=== PATIENT | male | born 1945 | race Caucasian/White ===

== ENCOUNTER → 2016-12-29 | Outpatient (CLI) | payer MEDICARE, OTHER ==
[~2016-12-29] MED LIST: 00186-0370-20 IH; CLOBETASOL PROP0.055 TP; COMBIRESP IH; DECADRON 4MG TAB4 MG PO; DITROPAN XL10 MG PO; DOXYCYCLINE 10100 MG PO; FLEXERIL 1010 MG/TAB PO; HYTRIN 5MG C5 MG/CAP PO; IPRATROPIUM BROM3 M1 IH; LIPITOR20 MG PO; PERCOCET 325 MG1 TA2 PO; PHENERGAN W/CO120 M1 PO; PREDNISONE20 MG PO; PRILOTC PO; PROVENTIL0.09 MG/A1 IH; PULMICORT90 MCG/Act IH; TAMIFLU 75MG75 MG PO; TEMOVATE0.052 TOP; VIAGRA100 MG PO; ZITHROMAX TRI-500 MG PO; [UNRECOGNIZED DRUG - OTHER] PO
== END ==
LOC: COL.RAD 07:12
DX: Z13.6 Encounter for screening for cardiovascular disorders (principal); I70.0 Atherosclerosis of aorta; F17.200 Nicotine dependence, unspecified, uncomplicated

== ENCOUNTER 2020-05-25 10:06 | Emergency (ER) | payer MEDICARE, OTHER ==
[~2020-05-25] VITALS: Ht 175.3 cm; Wt 75.0 kg
[2020-05-25 10:42] LABS: BASO # 0.1 (0.0-0.2); EOS # 0.2 (0.0-0.7); EOS % 2.5 % (0-4.0); GRAN # 4.6 (1.4-6.5); GRAN % 67.2 % (42.2-75.2); HEMATOCRIT 43.2 % (42.0-52.0); HEMOGLOBIN 14.3 g/dl (13.5-18.0); LYMPH # 1.5 (1.2-3.4); LYMPH % 21.6 % (20.0-51.0); MEAN CELL VOLUME 93 fl (80.0-100.0); MEAN CORPUSCULAR HEMOGLOBIN 31 pg (27.0-31.0); MEAN CORPUSCULAR HGB CONC 33 g/dl (33.0-37.0); MEAN PLATELET VOLUME 9.9 fl (7.4-10.4); MONO # 0.5 (0.1-0.6); MONO % 7.4 % (1.7-9.3); PLATELET COUNT 236 K/mm3 (130-400); RED BLOOD COUNT 4.63 M/mm3 (4.20-5.60); REDCELL DISTRIBUTION WIDTH-CV 13.2 % (11.5-14.5)
[2020-05-25 10:53] LABS: ALANINE AMINOTRANSFERASE 13 U/L (4-49); ALBUMIN 3.7 gm/dL (3.5-5.0); ALKALINE PHOSPHATASE 69 U/L (50-136); ANION GAP 5 mmol/L (7-16); AST,SGOT 17 U/L (15-37); BILIRUBIN,TOTAL 0.6 mg/dL (0.0-1.0); BLOOD UREA NITROGEN 15 mg/dL (9-20); CALCIUM 8.9 mg/dL (8.4-10.2); CARBON DIOXIDE 28 mmol/L (22-30); CHLORIDE 101 mmol/L (98-107); CREATININE, serum 0.88 (0.66-1.25); GLUCOSE 122 mg/dL (74-106); PARTIAL THROMBOPLASTIN TIME 30.4 SECONDS (26.0-37.0); SODIUM 135 mmol/L (137-145); TOTAL PROTEIN 6.5 gm/dL (6.4-8.2)
[2020-05-25 11:12] LABS: TROPONIN-I < 0.012 ng/mL (0.000-0.035)
[2020-05-25] MEDS ORDERED: TOPROL XL 50MG50 MG PO (13:59)
[2020-05-25 14:13] VITALS: BP 169/87; PULSE 78; TEMP 98.2
== END 2020-05-25 14:13 | disposition home or self-care (01) ==
LOC: COL.ER 10:06
PROVIDERS: Family Medicine
DX: J44.9 Chronic obstructive pulmonary disease, unspecified (principal); K44.9 Diaphragmatic hernia without obstruction or gangrene; I10 Essential (primary) hypertension; Z87.891 Personal history of nicotine dependence; Z79.51 Long term (current) use of inhaled steroids

== ENCOUNTER → 2021-01-26 | Outpatient (CLI) | payer MEDICARE, OTHER ==
[~2021-01-26] MED LIST changes: +TOPROL XL 50MG50 MG PO
== END ==
LOC: COL.RAD 09:26
DX: Z12.2 Encounter for screening for malignant neoplasm of respiratory organs (principal); F17.210 Nicotine dependence, cigarettes, uncomplicated; R91.8 Other nonspecific abnormal finding of lung field; I25.10 Atherosclerotic heart disease of native coronary artery without angina pectoris

== ENCOUNTER 2022-01-08 06:55 | Day surgery (SDC) | payer OTHER, MEDICARE ==
[~2022-01-08] VITALS: Ht 175.3 cm; Wt 73.5 kg
[2022-01-08] MEDS ORDERED: COZAAR100 MG PO (07:15)
[2022-01-08] MEDS ORDERED: DALIRESP500 MCG PO (07:15)
[2022-01-08 07:16] VITALS: BP 164/79; PULSE 88; TEMP 98.2
[2022-01-08 09:00] VITALS: BP 158/74; PULSE 106; TEMP 97.5
--- NOTE | 2022-01-08 09:00 | NUR ---
Patient arrives to [facility] [place] [address] via cart, accompanied by Endo RN Hannah. He is alert and oriented. He is coughing. RT has been contacted to administer a breathing treatment. PIV to TKO. His family is at the bedside. Monitoring is applied -VSS on room air. Will return following his breathing treatment.
[2022-01-08 09:15] VITALS: BP 137/57; PULSE 100
--- NOTE | 2022-01-08 09:15 | NUR ---
Patient is resting more comfortably. He is still coughing, but it is subsiding. He is offered water, he sips this without issue. He requests and receives coffee, pudding, and a muffin.
[2022-01-08 09:30] VITALS: BP 119/69; PULSE 94
[2022-01-08 09:45] VITALS: BP 115/92; PULSE 102
[2022-01-08 10:00] VITALS: BP 140/69; PULSE 91
--- NOTE | 2022-01-08 10:39 | NUR ---
Patient has met discharge criteria. He is no longer coughing. VSS. Discharge instructions are discussed. He denies any questions and verbalizes understanding. PIV is removed with catheter intact and hemostasis achieved. He changes to his clothing independently. He is escorted to the exit via wheelchair by staff. He is discharged to home with ride in private vehicle at 1039.
== END 2022-01-08 10:39 | disposition home or self-care (01) ==
LOC: SDCO 06:55
DX: R91.8 Other nonspecific abnormal finding of lung field (principal); F17.200 Nicotine dependence, unspecified, uncomplicated; K21.9 Gastro-esophageal reflux disease without esophagitis
CPT/HCPCS: J2704; J7120

== ENCOUNTER → 2022-02-18 | Outpatient (CLI) | payer OTHER ==
[~2022-02-18] MED LIST changes: +COZAAR100 MG PO; +DALIRESP500 MCG PO
== END ==
LOC: COL.VAS 02-16 14:45
DX: I51.7 Cardiomegaly (principal); I36.1 Nonrheumatic tricuspid (valve) insufficiency

== ENCOUNTER 2022-05-21 19:14 | Inpatient (IN) | payer MEDICARE, OTHER ==
[~2022-05-21] VITALS: Ht 175.3 cm; Wt 72.7 kg
[2022-05-21 21:26] LABS: BASO # 0.1 K/mm3 (0.0-0.2); BASO % 0.5 % (0.0-2.0); EOS # 0.1 K/mm3 (0.0-0.7); EOS % 1.2 % (0.0-4.0); GRAN # 7.8 K/mm3 (1.4-6.5); HEMATOCRIT 38.6 % (42.0-52.0); HEMOGLOBIN 13.5 g/dl (13.5-18.0); LYMPH # 0.8 K/mm3 (1.2-3.4); LYMPH % 8.3 % (20.0-51.0); MEAN CELL VOLUME 92 fl (80.0-100.0); MEAN CORPUSCULAR HEMOGLOBIN 32 pg (27-31); MEAN CORPUSCULAR HGB CONC 35 g/dl (33.0-37.0); MEAN PLATELET VOLUME 10.2 fl (7.4-10.4); MONO # 0.6 K/mm3 (0.1-0.6); MONO % 6.5 % (1.7-9.3); PLATELET COUNT 234 K/mm3 (130-400); RED BLOOD COUNT 4.18 M/mm3 (4.20-5.60)
[2022-05-21 21:46] LABS: ALBUMIN 3.2 gm/dL (3.4-4.8); BILIRUBIN,TOTAL 0.8 mg/dL (0.2-1.2); CREATININE, serum 0.67 mg/dL (0.72-1.25); POTASSIUM 3.4 mmol/L (3.5-4.5); TOTAL PROTEIN 6.3 gm/dL (6.2-8.1)
[2022-05-21] MEDS ORDERED: DALIRESP500 MCG PO (22:23)
[2022-05-21] MEDS ORDERED: COZAAR100 MG PO (22:23)
[2022-05-21] MEDS ORDERED: VIAGRA100 M1 PO (22:25)
[2022-05-21 23:47] LABS: INR 1.1 (0.8-3.0); PROTHROMBIN TIME 12.2 SECONDS (9.7-12.8)
[2022-05-22 01:47] LABS: COLLECTION METHOD IN
[2022-05-22 02:03] LABS: PH 5.5 (5.0-8.5); URINE APPEARANCE Clear (CLEAR/HAZY); URINE COLOR Yellow (YELLOW); URINE GLUCOSE Negative (NEGATIVE); URINE PROTEIN(semi-quant) Negative (NEGATIVE)
[2022-05-22 02:04] LABS: URINE BLOOD Negative (NEGATIVE); URINE KETONE 1+ (NEGATIVE); URINE NITRATE Negative (NEGATIVE); URINE UROBILINOGEN 0.2 E.U/dL (0.2-1.0)
[2022-05-22 02:08] LABS: MUCOUS Present (NOT PRESENT); SQUAMOUS EPITHELIAL None Seen /hpf (0-10); URINE BACTERIA None Seen /hpf (NONE SEEN); URINE RBC 0-2 /hpf (0-2)
--- NOTE | 2022-05-22 02:10 | NUR ---
Pt transferred to Surgical unit around 0130. Report received from EVENT MANAGER Nurse. Pt is A&O x4. Complaining of pain on Left Hip at the time of admission. PO Oxycodone, and last dose of PO K+ given per emar. pattern chain maker supervisor Apple performing Physical assessment. Pt has no other needs or concerns besides pain. RFA peripheral line. Fluids running at this time. Folley catheter in place with yellow and clear urine in bag. Pt is NPO per orders. On room air. Covid tested per orders. SCD on RLE. Iced pack applied to L Hip. Call light within reach.
[2022-05-22 04:50] VITALS: BP 150/71; PULSE 107; TEMP 97.7
[2022-05-22 06:38] LABS: BASO % 0.3 % (0.0-2.0); EOS # 0.1 K/mm3 (0.0-0.7); GRAN # 7.8 K/mm3 (1.4-6.5); GRAN % 84.8 % (42.2-75.2); HEMATOCRIT 40.3 % (42.0-52.0); HEMOGLOBIN 13.8 g/dl (13.5-18.0); LYMPH # 0.7 K/mm3 (1.2-3.4); LYMPH % 7.3 % (20.0-51.0); MEAN CELL VOLUME 92 fl (80.0-100.0); MEAN CORPUSCULAR HEMOGLOBIN 31 pg (27-31); MEAN CORPUSCULAR HGB CONC 34 g/dl (33.0-37.0); MEAN PLATELET VOLUME 9.8 fl (7.4-10.4); MONO # 0.6 K/mm3 (0.1-0.6); MONO % 6.3 % (1.7-9.3); PLATELET COUNT 241 K/mm3 (130-400); RED BLOOD COUNT 4.39 M/mm3 (4.20-5.60); REDCELL DISTRIBUTION WIDTH-CV 12.9 % (11.5-14.5)
[2022-05-22 06:53] LABS: CALCIUM 8.8 mg/dL (8.4-10.2); CREATININE, serum 0.73 mg/dL (0.72-1.25); POTASSIUM 3.9 mmol/L (3.5-4.5)
[2022-05-22 08:00] VITALS: BP 146/62; PULSE 101; TEMP 97.8
--- NOTE | 2022-05-22 09:45 | NUR ---
PT RESTING IN BED WITH FAMILY AT BEDSIDE. CONSENT SIGNED ON CHART. DR EARL CONSULTED PER ORDERS THIS AM. ORTHO IN TO SEE PT THIS AM. WAITING CLEARANCE FOR SURGERY LATER TODAY.
[2022-05-22 11:28] LABS: ARTERIAL BLD GAS O2 SATURATION 91.5 % (92-100); ARTERIAL BLOOD GAS BASE EXCESS -2.6 (-2-2); ARTERIAL BLOOD GAS PCO2 33.1 mmHg (35-45); ARTERIAL BLOOD GAS PO2 58.7 mmHg (80-100); ARTERIAL BLOOD GAS pH 7.42 (7.35-7.45)
[2022-05-22 12:00] VITALS: BP 126/55; PULSE 87; TEMP 97.6
[2022-05-22 15:50] VITALS: BP 121/59; PULSE 95; TEMP 99.2
[2022-05-22 19:21] VITALS: BP 176/76; PULSE 101; TEMP 98.1
--- NOTE | 2022-05-22 23:27 | NUR ---
SHIFT REPORT FROM JUDY COUCH. PATIENT IN BED ON ROOM ENTRY. ALERT AND ORIENTED BUT SLOW TO RESPOND. FAMILY AT BEDSIDE. PATIENT BECAME NAUSEATED SHORTLY AFTER SHIFT CHANGE AND HAD 1 EPISODE OF EMESIS. CALL PLACED TO MICHAEL COBB AND PRN ZOFRAN ORDERED AND GIVEN. PRN MORPHINE FOR PAIN. REFUSED TO WEAR BIPAP PER RT. DENIES ADDITIONAL NEEDS.
[2022-05-22 23:40] VITALS: BP 144/76; PULSE 93; TEMP 98.2
[2022-05-23] VITALS (14 sets, daily range): BP systolic 110–197; BP diastolic 60–87; PULSE 62–113; TEMP 97.5–98.7
--- NOTE | 2022-05-23 00:45 | NUR ---
IV TO R FA INFILTRATED WITH IVF INFUSING. RESTARTED ON FIRST ATTEMPT TO R FA, 20 G IV. TOLERATED WELL. OLD IV SITE DC'D AND GAUZE AND TAPE APPLIED.
[2022-05-23 06:25] LABS: BASO % 0.5 % (0.0-2.0); EOS # 0.2 K/mm3 (0.0-0.7); EOS % 2.8 % (0.0-4.0); GRAN # 6.9 K/mm3 (1.4-6.5); HEMATOCRIT 37.2 % (42.0-52.0); HEMOGLOBIN 12.3 g/dl (13.5-18.0); LYMPH # 0.5 K/mm3 (1.2-3.4); LYMPH % 6.3 % (20.0-51.0); MEAN CELL VOLUME 96 fl (80.0-100.0); MEAN CORPUSCULAR HEMOGLOBIN 32 pg (27-31); MEAN CORPUSCULAR HGB CONC 33 g/dl (33.0-37.0); MEAN PLATELET VOLUME 10.3 fl (7.4-10.4); MONO # 0.8 K/mm3 (0.1-0.6); MONO % 9.2 % (1.7-9.3); PLATELET COUNT 211 K/mm3 (130-400); RED BLOOD COUNT 3.89 M/mm3 (4.20-5.60); REDCELL DISTRIBUTION WIDTH-CV 12.9 % (11.5-14.5)
[2022-05-23 06:38] LABS: CALCIUM 8.6 mg/dL (8.4-10.2); CREATININE, serum 0.71 mg/dL (0.72-1.25); POTASSIUM 3.6 mmol/L (3.5-4.5)
--- NOTE | 2022-05-23 09:58 | NUR ---
PT RESTING IN BED. PAIN CONTROLLED WITH PO MEDS, POTASSIUM PROTOCOLS INPLACE. REPLACING PER PROTOCOL. PLAN ON SURGERY LATER TODAY. CONSENT SIGNED ON CHART.
--- NOTE | 2022-05-23 11:12 | NUR ---
SW met with pt to complete intake. Pt life partner, Veronica present in the room. [phone]. Pt reports independent on all ADLS and does have CPAP & Nebulizer, but does not use them. PCP is MA and gets medications from [facility]. Pt reports he has a DPAO-HC and it's his son, Musa. Pt would like referrals to [facility](1st choice) & [facility]. SW to fax referrals 05/23/21.
--- NOTE | 2022-05-23 13:04 | NUR ---
PT TO SURGERY PER BED WITH AUGUSTO RN AT 1245.
--- NOTE | 2022-05-23 15:04 | NUR ---
PT TO ROOM 326 PER BED WITH REPORT FROM AUGUSTO COUCH PACU @1130. PT IS DROWSEY BUT AROUSES TO VERBAL. VSS, DRESSING TO LEFT HIP CDI WITH GAUZE AND TEGADERM OVER INCISION. IV TO PUMP AND RESUME POTASSIUM PROTOCOLS. FAMILY AT BEDSIDE.
--- NOTE | 2022-05-23 16:31 | NUR ---
PT BP TRENDING UP LAST READING 190/91. GAVE PO PAPIN MEDS AND UPDATED DR. MORRELL, CONTINUE TO MONITOR. NO NEW ORDERS.
--- NOTE | 2022-05-23 20:56 | NUR ---
Patient A/O, head to toe assessment done, see shift assessment, reports pain PS of 8/10, oxycodone given as ordered PRN, with IV infusing well on right forearm, with murphy catheter draining well, denies further needs, call light and personal items within reach, will continue to monitor.
--- NOTE | 2022-05-23 21:20 | NUR ---
SPOKE WITH PT ABOUT WEARING BIPAP WHILE SLEEPING TONIGHT PER DR. EARL'S ORDER; PT REFUSES, STATES HE WILL ONLY ACCEPT WEARING THE NASAL CANNULA. PT IS SLEEPING, AWAKES TO INTRODUCITON AND HOLD CONVERSATION; SPO2 97% ON 3LPM NC AT THIS TIME. TITRATED TO 2LPM.
[2022-05-24] VITALS (7 sets, daily range): BP systolic 120–189; BP diastolic 70–83; PULSE 60–107; TEMP 97.4–99.2
--- NOTE | 2022-05-24 03:41 | NUR ---
Pt refusing to wear our V-60 BIPAP at Night. Is on 2L/NC 96%.
[2022-05-24 07:03] LABS: BASO % 0.4 % (0.0-2.0); EOS # 0.2 K/mm3 (0.0-0.7); EOS % 1.8 % (0.0-4.0); GRAN # 7.5 K/mm3 (1.4-6.5); GRAN % 80.2 % (42.2-75.2); HEMOGLOBIN 12.4 g/dl (13.5-18.0); LYMPH # 0.7 K/mm3 (1.2-3.4); LYMPH % 7.4 % (20.0-51.0); MEAN CELL VOLUME 93 fl (80.0-100.0); MEAN CORPUSCULAR HEMOGLOBIN 32 pg (27-31); MEAN CORPUSCULAR HGB CONC 34 g/dl (33.0-37.0); MEAN PLATELET VOLUME 10.4 fl (7.4-10.4); MONO # 0.9 K/mm3 (0.1-0.6); MONO % 9.8 % (1.7-9.3); PLATELET COUNT 207 K/mm3 (130-400); RED BLOOD COUNT 3.89 M/mm3 (4.20-5.60); REDCELL DISTRIBUTION WIDTH-CV 12.8 % (11.5-14.5)
[2022-05-24 07:26] LABS: CALCIUM 8.9 mg/dL (8.4-10.2); CREATININE, serum 0.68 mg/dL (0.72-1.25); POTASSIUM 3.7 mmol/L (3.5-4.5)
--- NOTE | 2022-05-24 07:59 | NUR ---
Pt doing okay. Stated he could not get up because he was hurting too bad. Offered pain medication which pt stated that he wasn't quite ready for. Informed him that he would be getting up to the chair today and pt did not think that he could. Pt required some assistance to sitting position, but then pt was able to stand with no help and did transfer to the chair slowly, but did well. Breakfast ordered
--- NOTE | 2022-05-24 09:26 | NUR ---
Initial visit; Patient thanked Circulation Crew Leader for looking in on him and offering prayer and God's blessings. Patient appears to have some anxiety about being in the hospital. Circulation Crew Leader mentioned what a good view of [facility] he has to which he had no comment. Patient mannerly and was glad for the prayer. Circulation Crew Leader wished him well.
--- NOTE | 2022-05-24 16:16 | NUR ---
Clinical updates sent to Max at [facility].
--- NOTE | 2022-05-24 21:00 | NUR ---
Patient doing better, head to toe assessment done, see shift assessment, rated his pain at 7/10, dayshift nurse gave him oxycodone, ice pack on, denies further needs, call light and personal items within reach, will continue to monitor.
[2022-05-25 04:24] VITALS: BP 187/90; PULSE 96; TEMP 98.8
[2022-05-25 06:06] LABS: BASO % 0.6 % (0.0-2.0); EOS # 0.2 K/mm3 (0.0-0.7); EOS % 3.4 % (0.0-4.0); GRAN # 5.2 K/mm3 (1.4-6.5); GRAN % 72.8 % (42.2-75.2); LYMPH # 0.7 K/mm3 (1.2-3.4); LYMPH % 10.2 % (20.0-51.0); MEAN CELL VOLUME 91 fl (80.0-100.0); MEAN CORPUSCULAR HEMOGLOBIN 32 pg (27-31); MEAN CORPUSCULAR HGB CONC 35 g/dl (33.0-37.0); MEAN PLATELET VOLUME 10.1 fl (7.4-10.4); MONO # 0.9 K/mm3 (0.1-0.6); MONO % 12.4 % (1.7-9.3); PLATELET COUNT 196 K/mm3 (130-400); RED BLOOD COUNT 3.77 M/mm3 (4.20-5.60); REDCELL DISTRIBUTION WIDTH-CV 12.8 % (11.5-14.5)
[2022-05-25 06:07] LABS: HEMATOCRIT 34.3 % (42.0-52.0)
[2022-05-25 06:18] LABS: CALCIUM 9.2 mg/dL (8.4-10.2); CREATININE, serum 0.66 mg/dL (0.72-1.25); POTASSIUM 3.5 mmol/L (3.5-4.5)
[2022-05-25 06:38] VITALS: BP 180/77
[2022-05-25 07:19] VITALS: BP 183/89; PULSE 101; TEMP 98
--- NOTE | 2022-05-25 07:35 | NUR ---
Bedside report received from the night nurse, IZA Mao.
--- NOTE | 2022-05-25 08:46 | NUR ---
Patient sitting up in a recliner next to bed. Patient alert and oriented. Gauze dressing to left hip , dry and intact. Patient reports of intermittent pain. Pulses presents. Dr. Kan at the bedside and order to wean patient off 02. O2 off at this time and will continue to monitor 02 sat level. Patient denies needs at this time. Safety measures activated by having fall alarm system on. Call hood within reach.
--- NOTE | 2022-05-25 10:33 | NUR ---
Patient c/o pain at left hip , pain medication administered.
[2022-05-25 11:31] VITALS: BP 117/63; PULSE 98; TEMP 97.6
[2022-05-25] MEDS ORDERED: ASPI325T6 PO (11:42)
[2022-05-25] MEDS ORDERED: SENEXON-S 50-81 EACH PO (11:42)
[2022-05-25] MEDS ORDERED: ROXICODONE 55 MG/TAB PO (11:48)
[2022-05-25] MEDS ORDERED: TYLENOL 500MG500 MG PO (11:48)
--- NOTE | 2022-05-25 11:56 | NUR ---
The clinical team is ready to discharge the patient today. JESSICA notified Max at [facility]. Max reports that they are able to accept the patient today. JESSICA met with the patient to update. The patient is agreeable to going to [facility] today. JESSICA presented and read the IM form outloud to him. The patient verbalized understanding and signed the form. JESSICA provided him with a copy. JESSICA contacted and updated the patient's life partner, Veronica. She is also supportive of the plan. The patient is to discharge today, 05/25, to [facility] for a skilled stay. Transportation was scheduled at 1400, via [facility]. JESSICA informed the patient, his life partner, and RN of the time. No additional needs at this time.
--- NOTE | 2022-05-25 14:34 | NUR ---
Transportation service up on the unit to transport patient to [facility]. Patient requested for pain medication before leaving the unit. Pain medication administered. All belongings givent to patient. INT discontinued.
--- NOTE | 2022-05-25 15:06 | NUR ---
Report given to receiving nurse Ashanti at [facility].
== END 2022-05-25 14:35 | DRG 481 ==
LOC: COL.ER 19:14 → SURG 21:46
PROVIDERS: Emergency Medicine; Internal Medicine; Nurse Practitioner Family; Orthopaedic Surgery; Student in an Organized Health Care Education/Training Program; ADMIT Internal Medicine
PROC: 0QS704Z Reposition Left Upper Femur with Internal Fixation Device, Open Approach (ICD-10-PCS; principal; 2022-05-23 13:00)
DX: S72.142A Displaced intertrochanteric fracture of left femur, initial encounter for closed fracture (principal); E87.1 Hypo-osmolality and hyponatremia; E87.3 Alkalosis; M87.851 Other osteonecrosis, right femur; W18.39XA Other fall on same level, initial encounter; Z66 Do not resuscitate; J44.9 Chronic obstructive pulmonary disease, unspecified; G62.9 Polyneuropathy, unspecified; E87.6 Hypokalemia; R05.3 Chronic cough; F17.210 Nicotine dependence, cigarettes, uncomplicated; K21.9 Gastro-esophageal reflux disease without esophagitis; Z20.822 Contact with and (suspected) exposure to COVID-19; I10 Essential (primary) hypertension; G47.33 Obstructive sleep apnea (adult) (pediatric); F10.90 Alcohol use, unspecified, uncomplicated; Z90.89 Acquired absence of other organs; Z85.118 Personal history of other malignant neoplasm of bronchus and lung; Z90.49 Acquired absence of other specified parts of digestive tract; Z85.038 Personal history of other malignant neoplasm of large intestine; Y92.89 Other specified places as the place of occurrence of the external cause; Y93.89 Activity, other specified; Z86.73 Personal history of transient ischemic attack (TIA), and cerebral infarction without residual deficits; Z86.16 Personal history of COVID-19; Z85.46 Personal history of malignant neoplasm of prostate; Z87.01 Personal history of pneumonia (recurrent); Z23 Encounter for immunization
CPT/HCPCS: A9284; C1713; C9113; J0690; J1170; J1885; J2250; J2270; J2370; J2405; J2704; J3010; J3480; Q9967